=== PATIENT | male | born 1995 | race Caucasian/White ===

== ENCOUNTER 2018-04-30 13:25 | Emergency (ER) | payer OTHER ==
[~2018-04-30] VITALS: Ht 182.9 cm; Wt 70.5 kg
[2018-04-30 13:41] VITALS: TEMP 97.7
[2018-04-30 14:26] LABS: BASO % 0.3 % (0.0-2.0); EOS % 0.1 % (0-4.0); GRAN # 9.1 (1.4-6.5); GRAN % 85.1 % (42.2-75.2); HEMATOCRIT 45.4 % (36.0-47.0); HEMOGLOBIN 15.8 g/dl (12.5-16.1); LYMPH # 0.8 (1.2-3.4); LYMPH % 7.2 % (20.0-51.0); MEAN CELL VOLUME 93 fl (80.0-95.0); MEAN CORPUSCULAR HEMOGLOBIN 33 pg (26.0-32.0); MEAN CORPUSCULAR HGB CONC 35 g/dl (33.0-37.0); MEAN PLATELET VOLUME 10.3 fl (7.4-10.4); MONO # 0.8 (0.1-0.6); PLATELET COUNT 338 K/mm3 (130-400); RED BLOOD COUNT 4.86 M/mm3 (4.20-5.60)
[2018-04-30 14:31] LABS: ALANINE AMINOTRANSFERASE 32 U/L (21-72); ALBUMIN 4.6 gm/dL (3.5-5.0); ALKALINE PHOSPHATASE 56 U/L (50-136); AST,SGOT 34 U/L (15-37); BILIRUBIN,TOTAL 0.7 mg/dL (0.0-1.0); BLOOD UREA NITROGEN 14 mg/dL (9-20); CALCIUM 9.9 mg/dL (8.4-10.2); CARBON DIOXIDE 28 mmol/L (22-30); CREATININE, serum 1.01 mg/dL (0.66-1.25); GLUCOSE 88 mg/dL (74-106); POTASSIUM 3.8 mmol/L (3.4-5.0); SODIUM 142 mmol/L (137-145); TOTAL PROTEIN 7.8 gm/dL (6.4-8.2)
[2018-04-30 14:32] LABS: CHLORIDE 107 mmol/L (98-107)
[2018-04-30 14:35] LABS: ANION GAP 7 mmol/L (7-16)
[2018-04-30] MEDS ORDERED: XANAX 0.5MG0.5 MG PO (14:44)
[2018-04-30] MEDS ORDERED: ZOLOFT 50MG50 MG PO (14:44)
[2018-04-30 14:47] LABS: ALCOHOL(ethanol),MEDICAL < 10 mg/dL
[2018-04-30 14:48] LABS: PROLACTIN 17.3 ng/mL (3.7-17.9)
[2018-04-30 15:59] LABS: TRICYCLIC ANTIDEPRESS URINE NEGATIVE
[2018-04-30] MEDS ORDERED: KEPPRA 500MG500 MG PO (16:41)
[2018-04-30 17:00] VITALS: BP 107/74; PULSE 83
== END 2018-04-30 17:02 | disposition home or self-care (01) ==
LOC: COL.ER 13:25
PROVIDERS: Physician Assistant
DX: R56.9 Unspecified convulsions (principal); F13.20 Sedative, hypnotic or anxiolytic dependence, uncomplicated; F12.90 Cannabis use, unspecified, uncomplicated; Z88.0 Allergy status to penicillin
CPT/HCPCS: J2060; J7030